=== PATIENT | male | born 1990 | race Caucasian/White ===

== ENCOUNTER 2022-08-03 15:36 | Emergency (ER) | payer SELFPAY ==
[2022-08-03] VITALS (7 sets, daily range): BP systolic 118–141; BP diastolic 59–109; PULSE 69–87; RESP 12–16; TEMP 36.8; O2SAT 92–100; BMI 26.4
--- NOTE | 2022-08-03 15:48 | XRR_ITS ---
PROCEDURE INFORMATION: Exam: XR Right Tibia and Fibula Exam date and time: 08/03/2022 3:57 PM Age: 32 years old Clinical indication: Injury or trauma; Fall; Blunt trauma; Lower leg; Right; Prior surgery TECHNIQUE: Imaging protocol: Radiologic exam of the right tibia and fibula. Views: 2 views. COMPARISON: No relevant prior studies available. FINDINGS: Bones/joints: Intact ORIF hardware in the distal fibula. No acute fracture. Soft tissues: Normal. XR/XR tibia fibula RT 2V [id number] IMPRESSION: No acute findings.
--- NOTE | 2022-08-03 15:48 | XR_ITS ---
WS: [id number] Exam: XR tibia fibula LT 2V [id number] Date/Time of Exam: 08/03/2022 3:51 PM Reason For Exam: trauma No fracture or dislocation. Unremarkable soft tissues. Articular relationships at the knee and ankle appear normal. There may be a tiny osteochondroma along the medial aspect of the fibular head. XR/XR tibia fibula LT 2V [id number] IMPRESSION: 1. No fracture or other significant finding.
--- NOTE | 2022-08-03 15:48 | CTR_ITS ---
PROCEDURE INFORMATION: Exam: CT Maxillofacial Without Contrast Exam date and time: 08/03/2022 5:00 PM Age: 32 years old Clinical indication: Injury or trauma; Fall; Work related; Blunt trauma (contusions or hematomas); Other: Whole face involved with multi contact points with wood trusses; Injury details: Trussed roof fell on patient TECHNIQUE: Imaging protocol: Computed tomography of the face without contrast. Radiation optimization: All CT scans at this facility use at least one of these dose optimization techniques: automated exposure control; mA and/or kV adjustment per patient size (includes targeted exams where dose is matched to clinical indication); or iterative reconstruction. REPORTING DATA: Count of CT and Cardiac NM exams in prior 12 months: This patient has received [address] and 0 known cardiac nuclear medicine studies in the 12 months prior to the current study. COMPARISON: CT head wo con* [id number] 08/03/2022 4:55 PM RADIATION DOSE METRICS: Total DLP (mGy-cm): 675.68 FINDINGS: Orbital cavities: Orbits are normal. Globes are unremarkable. Bones/joints: No acute fracture. Paranasal sinuses: Normal. No air-fluid levels. Soft tissues: Unremarkable. CT/CT facial bones wo con* [id number] IMPRESSION: No acute findings.
--- NOTE | 2022-08-03 15:48 | CTR_ITS ---
PROCEDURE INFORMATION: Exam: CT Head Without Contrast Exam date and time: 08/03/2022 4:55 PM Age: 32 years old Clinical indication: Injury or trauma; Fall; Work related; Blunt trauma (contusions or hematomas); Without loss of consciousness; Injury details: Trused roof collapsed on PT TECHNIQUE: Imaging protocol: Computed tomography of the head without contrast. Radiation optimization: All CT scans at this facility use at least one of these dose optimization techniques: automated exposure control; mA and/or kV adjustment per patient size (includes targeted exams where dose is matched to clinical indication); or iterative reconstruction. REPORTING DATA: Count of CT and Cardiac NM exams in prior 12 months: This patient has received [address] and 0 known cardiac nuclear medicine studies in the 12 months prior to the current study. COMPARISON: No relevant prior studies available. RADIATION DOSE METRICS: Total DLP (mGy-cm): 1146.58 FINDINGS: Brain: Normal. No hemorrhage. Unremarkable white matter. No mass effect. Cerebral ventricles: No ventriculomegaly. Paranasal sinuses: Visualized sinuses are unremarkable. No fluid levels. Mastoid air cells: Visualized mastoid air cells are well aerated. Bones/joints: Unremarkable. No acute fracture. Soft tissues: Right lateral scalp contusion. CT/CT head wo con* [id number] IMPRESSION: No acute intracranial abnormality.
--- NOTE | 2022-08-03 15:50 | ED_ITS ---
HPI - Trauma General: Chief Complaint: Trauma Stated Complaint: FALL/ HEADACHE/ ABRASIONS Time Seen by Provider: 08/03/22 15:42 Source: patient and EMS Mode of arrival: EMS Limitations: no limitations History of Present Illness: Patient was transported by EMS to the emergency department. 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 He did not suffer a loss of conscious but did suffer multiple abrasions to his face nose as well as his upper and lower extremities. MD complaint: fall Location - Extremities: Right: lower leg Associated symptoms: Reports epistaxis; Denies abdominal pain, chest pain, chills, fever(s), headache(s), nausea, syncope or vomiting Review of Systems Const: Denies: fever(s) or chills Eyes: Denies: change in vision ENMT: Reports: epistaxis; Denies: throat pain or odynophagia Card: Denies: chest pain, palpitations, syncope or pre-syncope Resp: Denies: dyspnea, productive cough or non-productive cough GI: Denies: abdominal pain, nausea or vomiting : Denies: flank pain, difficulty urinating, dysuria or urinary frequency Musc: Reports: extremity pain Skin/Breast: Reports: rash Neuro: Denies: headache(s), numbness in extremities or weakness in extremities Physical Exam Narrative: EXAM NARRATIVE: Presents somewhat anxious with C-spine immobilization in place. He is alert and answers questions appropriately. Const: COMMON NORMALS: alert GENERAL APPEARANCE: anxious HENMT: COMMON NORMALS: TM's normal bilaterally, moist oral mucous membranes and oropharynx normal FACE & SINUS: sinuses nontender and face symmetric FACE & SINUS IMAGES: 1. Abrasion and soft tissue swelling no step-off NOSE: Epistaxis present (No active bleeding. Septum appears midline. No obvious septal hematoma.) on the right TYMPANIC MEMBRANE: TM's normal bilaterally Eye: COMMON NORMALS: Equal, round and reactive pupils present, EOMs intact bilaterally and conjunctivae normal CONJUNCTIVA: Yes conjunctivae normal PUPIL: Yes Equal, round and reactive pupils present Neck/C-Spine: CERVICAL SPINE: Yes cervical ROM normal, No Cervical spine tenderness, No step off deformity, No Paracervical muscle tenderness, No Paracervical spasm, No Trapezius muscle tenderness and Yes collar present (Removed for examination) OTHER: Nexus criteria used to clinically clear save cervical spine after removal of collar Chest: COMMONS NORMALS: normal inspection of the chest and normal palpation of entire chest wall Resp: COMMON NORMALS: normal respiratory effort, No retractions, No use of accessory muscles and clear to auscultation bilaterally AUSCULTATION: clear to auscultation bilaterally Cardio: COMMON NORMALS: regular rate, regular rhythm, No murmurs present (Cardio) and Peripheral pulses 2+ throughout RATE: regular rate RHYTHM: regular rhythm PERIPHERAL PULSES: Peripheral pulses 2+ throughout GI: COMMON NORMALS: Normal to inspection, nondistended, normoactive bowel sounds present and Soft to palpation PALPATION: Yes Soft to palpation : COMMON NORMALS: Yes no CVA tenderness BLADDER/KIDNEY EXAM: Yes no CVA tenderness Back/Pelvis: COMMON NORMALS: no CVA tenderness, thoracic and lumbar spine normal to inspection, no thoracic nor lumbar tenderness, thoraco-lumbar ROM normal and straight leg raise negative bilaterally PELVIS: Yes no pain with anterior-posterior compression, Yes no pain with lateral compression and No tenderness over symphysis pubis SACROILIAC JOINTS: Yes SI joints normal Extremity: COMMON NORMALS: full ROM, capillary refill normal, no calf tenderness and no pedal edema NARRATIVE EXTREMITY EXAM: Extremity examination revealed normal range of motion in both upper extremities at the shoulder elbow wrist and distal joints. He has abrasion to his left forearm as well as several small abrasions to his right forearm. Able to pronate and supinate both forearms without any difficulty. Examination of the lower extremities revealed no evidence of deformity. He has tenderness over the abraded skin of his left anterior leg as well as the right. There is no deformity. He has normal range of motion at the hip knee ankle joints and distally bilaterally. Neurovascular intact. Neuro: FERNY COMA SCALE: document GCS findings Ferny coma scale eye ope hannah: Spontaneous Ferny coma scale verbal response: Orientated Ferny coma scale motor response: Obey commands [place] coma scale total score: 15 COMMON NORMALS: moves all extremities, no focal motor deficits and no sensory deficits noted SENSORIUM/ORIENTATION: Yes alert SPEECH: speech normal Psych: COMMON NORMALS: mental status grossly normal Skin: COMMON NORMALS: turgor normal NARRATIVE SKIN EXAM: Abrasions as previously noted to left face left and right forearms left and right anterior lower legs. No lacerations or other repairable wounds. GENERAL SKIN EXAM: turgor normal Course Reevaluation(s): Reevaluation #1: Patient was reexamined. No new or focal findings. No evidence of active nasal bleeding. No evidence of septal hematoma etc. Patient remains alert moves all extremities normally, no sensory or motor deficits. No other findings. Discussed current imaging studies expected course and return precautions. Time: 17:59 Vital Signs: Vital signs: Vital Signs Temperature 98.2 F 08/03/22 15:36 Pulse Rate 82 08/03/22 15:36 Respiratory Rate 16 08/03/22 17:10 Blood Pressure 141/109 08/03/22 15:36 Pulse Oximetry 100 08/03/22 17:10 Oxygen Delivery Me thod 08/03/22 15:36 MDM - Trauma Medical Decision Making This patient was transported from a construction site by EMS after sliding down collapsed ceiling trusses and then winding up falling the last approximately 5 feet to the ground. He sustained multiple abrasions and complained of left facial pain as well as lower leg pain on arrival. His clinical exam was reassuring and that there was no evidence of focal neurologic findings, obvious fractures etc. Work-up was initiated to ensure no obvious fracture, intracranial hemorrhage or skull fracture, facial fractures etc. Imaging studies were reassuring to include CT of head and face. Cervical spines and axial spine was cleared clinically without any step-offs or evidence of bony tenderness. Lower extremity films were also reassuring without evidence of fracture. Repeat evaluation revealed him to be stable without any new or focal findings. Patient has suffered multiple abrasions but no evidence of any more serious injury at this time. His tetanus status was updated and he is suitable to be discharged with outpatient follow-up and return precautions for emergency department visit. Lab Data I reviewed the patient's lab results. Radiology Impressions Face CT 08/03/22 15:48 IMPRESSION: No acute findings. Head CT 08/03/22 15:48 IMPRESSION: No acute intracranial abnormality. Tibia/Fibula X-Ray 08/03/22 15:48 IMPRESSION: No acute findings. Discharge Plan Discharge Patient Disposition: Home Clinical Impression: Contusion of face, Abrasion, multiple sites, Injury resulting from fall from height Condition: Stable Prescriptions: No Action No Known Home Medications Discharge Orders: Discharge ED (Routine); Ordered 08/03/22 Ordered By: Gato Guevara Discharge Diet: Advance as tolerated Discharge Activity: Increase activity as tolerated Patient Instructions: Abrasion (ED), Opioid Safety, Pain Management Activity Restrictions/Additional Instructions: As we discussed there was no evidence of serious injury as a result of your fall today. You have suffered multiple abrasions as well as soft tissue injury to your face and head. All of these injuries should heal normally over the next several days. Should you develop any new or concerning symptoms increasing pain etc. return to this emergency department for reevaluation. Coding Level of Care Code ED Supervisor Nut Processing for Josemanuel Russell
[2022-08-03] MEDS: tetanus-dipt-pertussis 0.5 mL SDV IM (16:40)
[2022-08-03] MEDS: fentaNYL 50 mcg/mL INJ 2mL IVP (17:10)
== END 2022-08-03 18:48 | disposition home or self-care (01) ==
PROVIDERS: Emergency Provider Emergency Medicine
DX: S00.83XA Contusion of other part of head, initial encounter (principal); S50.812A Abrasion of left forearm, initial encounter; S50.811A Abrasion of right forearm, initial encounter; S80.812A Abrasion, left lower leg, initial encounter; S80.811A Abrasion, right lower leg, initial encounter; W12.XXXA Fall on and from scaffolding, initial encounter; Z23 Encounter for immunization
CPT/HCPCS: 70450; 70486; 73590; 90471; 90715; 96374; 99285; J3010

== ENCOUNTER 2025-01-27 08:15 | Emergency (ER) | payer SELFPAY ==
--- OUTSIDE RECORDS SUMMARY | 2025-01-27 08:37 | XMS_ITS | Encounter Summary ---
Author Organization [facility] Address [address] [place] [address] Care Team Providers Care Chip Crusher Operator Name Role Phone Unavailable Primary Care Provider Unavailabl e Encounter Details Date Type Department Care Team (Latest Contact Info) Description 12/02/2003 Outpatient Historical [facility] All[facility] and Ast[facility]- [place] [address] [place] [address] Bridger Rodriguez MD NO ADDRESS ON FILE Toxic effect venom (Primary Dx) Social History Tobacco Use Types Packs/Day Years Used Date Smoking Tobacco: Never Assessed Sex and Gender Information Value Date Recorded Sex Assigned at Not on file 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
--- OUTSIDE RECORDS SUMMARY | 2025-01-27 08:37 | XMS_ITS | Encounter Summary ---
Author Organization [facility] Address [address] [place] [address] Care Team Providers Care Cemetery Vault Installer Name Role Phone Unavailable Primary Care Provider Unavailabl e Encounter Details Date Type Department Care Team (Latest Contact Info) Description 12/09/2003 Outpatient Historical [facility] All[facility] and Ast[facility]- [place] [address] [place] [address] Bridger Rodriguez MD NO ADDRESS ON FILE Toxic effect venom (Primary Dx) Social History Tobacco Use Types Packs/Day Years Used Date Smoking Tobacco: Never Assessed Sex and Gender Information Value Date Recorded Sex Assigned at Not on file 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
--- OUTSIDE RECORDS SUMMARY | 2025-01-27 08:37 | XMS_ITS | Clinical Summary ---
Author Organization [facility] Address [address] Nguyen: [place] [address] Care Team Providers Care Manufacturer Representative Name Role Phone Unavailable Primary Care Provider Unavailabl e Immunizations Immunization Administration Dates Next Due (M-M-R II/PRIORIX)(12 MO UP) MEASLES, MUMPS AND RUBELLA VIRUS VACCINE, 0.5 ML IM/SUBCUT 04/04/1994,04/18/1990 (TDVAX)(7 YRS UP) TETANUS AN D DIPHTHERIA TOXOIDS, ADSORBED (2 LF OF TETANUS TOXOID AND 2 LF OF DIPHTHERIA TOXOID), 0.5ML (PF), IM 12/05/2003 Dt Dtp Dtap Vaccine 12/13/1993, 0,1989,1989 HIB, Unspecified Formulation 05/18/1990 Hepatitis A Vaccine 04/19/2002,10/11/2001 Hepatitis B Vaccine 04/19/2002,12/14/2001,2001 IPV/OPV 12/13/1993,04/18/1990,1989 Influenza Seasonal Unspecifi ed Formulation IM 02/24/1997,03/27/1996 Social History Tobacco Use Types Packs/Day Years Used Date Smoking Tobacco: Never Assessed Sex and Gender Information Value Date Recorded Sex Assigned at Not on file 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
[2025-01-27 08:40] VITALS: BP 140/79; PULSE 64; RESP 18; TEMP 36.4; O2SAT 100
[2025-01-27 08:55] LABS: Hematocrit 40.6 % (37-53); Hemoglobin 13.20 g/dL (11.27-16.99); Mean Corpuscular HGB Conc 32.5 g/dL (30-55); Mean Corpuscular Hemoglobin 29.4 pg (27-33); Mean Corpuscular Volume 90.4 fl (82-101); Nucleated Red Blood Cells % 0 %; Platelet Count 360 10^3/cmm (157-399); Red Blood Count 4.49 10^6/uL (3.85-5.65); White Blood Count 7.82 10^3/uL (3.29-11.43)
[2025-01-27 09:10] LABS: Alanine Aminotransferase 21 U/L (0-41); Albumin Level 3.9 g/dL (3.5-5.2); Alkaline Phosphatase 82 U/L (40-130); Anion Gap 12.5 (5-19); Aspartate Amino Transferase 20 U/L (0-40); Blood Urea Nitrogen 15 mg/dL (6-20); Calcium 8.6 mg/dL (8.5-10.5); Carbon Dioxide 23 mmol/L (22-29); Chloride 106 mmol/L (98-107); Creatinine Clr Calc Pharmacy 181.2902; Globulin 2.4 g/dL (1.3-4.6); Glucose 98 mg/dL (65-115); Lipase 26 U/L (13-60); Osmolality Calculated 285 mOsm/kg (285-295); Potassium 4.5 mmol/L (3.5-5.1); Sodium 137 mmol/L (136-145); Total Protein 6.3 g/dL (6.6-8.7)
[2025-01-27 09:21] LABS: Glucose Urine UA Negative (Normal); Nitrate Urine Negative (Negative); Specific Gravity, Urine 1.015 (1.005-1.030)
--- NOTE | 2025-01-27 09:23 | ED_ITS ---
HPI - Abdominal Pain 2 General: Chief Complaint: Abdominal Pain Stated Complaint: lower abd pain Time Seen by Provider: 01/27/25 08:18 History of Present Illness: 35-year-old male presents emergency room stating he felt a pop in the right inguinal region when he was coughing it bothers him anytime he coughs or lifts anything heavy he has not noticed anything protruding he denies dysuria urgency or frequency no previous hernias or hernia surgeries. No bulge in the groin at this time. Associated Symptoms: Denies chills, dysuria and fever(s) Related Data Previous Rx's ?Medication ?Instructions ?Recorded amoxicillin 500 mg tablet 1,000 mg (2 x 500 mg) PO BID 10 03/24/24 days #40 tabs ibuprofen 600 mg tablet 600 mg PO Q8H PRN pain #30 t abs 03/24/24 Allergies Allergy/AdvReac Type Severity Reaction Status Date / Time bee venom protein (honey bee) Allergy ALGY-Anaphy Verified 03/24/24 10:52 laxis Review of Systems 2 Const: Denies: fever(s) or chills Card: Denies: chest pain Resp: Denies: dyspnea GI: Denies: abdominal pain : Denies: dysuria, urinary frequency or urinary urgency Musc: Denies: neck pain or back pain Skin/Breast: Denies: rash PFSH ED 2 PFSH: Social History Smoking and tobacco/nicotine status: unknown if used tobacco/nicotine Physical Exam 2 Const: COMMON NORMALS: no acute distress GENERAL APPEARANCE: cooperative and comfortable ORIENTATION/CONSCIOUSNESS: Yes awake, Yes oriented to person, Yes oriented to place and Yes oriented to time HENMT: COMMON NORMALS: normocephalic, atraumatic and hearing grossly normal bilaterally HEAD & SCALP: normocephalic and atraumatic Resp: COMMON NORMALS: normal respiratory effort, No retractions, No use of accessory muscles and clear to auscultation bilaterally AUSCULTATION: clear to auscultation bilaterally Cardio: COMMON NORMALS: regular rate, regular rhythm and No murmurs present (Cardio) RATE: regular rate RHYTHM: regular rhythm GI: COMMON NORMALS: Soft to palpation and No hepatosplenomegaly present A USCULTATION: Yes normoactive bowel sounds PALPATION: Yes Soft to palpation, No Tenderness to palpation present (GI), No Guarding due to palpation present (GI) and Yes No hepatosplenomegaly present : OTHER: Examination of the ilioinguinal region there is no evidence of herniation with palpation along the inguinal canal no defects or loose inguinal rings. No masses no lymphadenopathy Extremity: COMMON NORMALS: normal to inspection, capillary refill normal, no clubbing, cyanosis or edema, no calf tenderness and no pedal edema Neuro: SENSORIUM/ORIENTATION: Yes oriented to person, Yes oriented to place and Yes oriented to time Skin: COMMON NORMALS: no rashes or lesions noted GENERAL SKIN EXAM: no rashes or lesions noted Course 2 Vital Signs: Vital signs: Vital Signs Temperature 97.6 F 01/27/25 08:40 Pulse Rate 64 01/27/25 08:40 Respiratory Rate 18 01/27/25 08:40 Blood Pressure 140/79 01/27/25 08:40 Pulse Oximetry 100 01/27/25 08:40 Oxygen Delivery Me thod Room Air 01/27/25 08:40 MDM - Abdominal Pain Medical Decision Making Laboratory work normal reassurance given will discharge patient home suspect he strained muscle in the ilioinguinal ligament. Discharge patient home and follow-up with primary care. Medical Records I reviewed the patient's medical records. Lab Data I reviewed the patient's lab results. 01/27/25 08:48 01/27/25 08:48 Labs/Radiology: Laboratory Results WBC 7.82 10^3/uL (3.29-11.43) 01/27/25 08:48 RBC 4.49 10^6/uL (3.85-5.65) 01/27/25 08:48 Hgb 13.20 g/dL (11.27-16.99) 01/27/25 08:48 Hct 40.6 % (37-53) 01/27/25 08:48 MCV 90.4 fl (82-101) 01/27/25 08:48 MCH 29.4 pg (27-33) 01/27/25 08:48 MCHC 32.5 g/dL (30-55) 01/27/25 08:48 RDW 12.1 % (12.1-15.1) 01/27/25 08:48 Plt Count 360 10^3/cmm (157-399) 01/27/25 08:48 MPV 9.7 fL (7.4-10.4) 01/27/25 08:48 Neut % (Auto) 58.8 % 01/27/25 08:48 Lymph % (Auto) 26.2 % 01/27/25 08:48 [place] % (Auto) 10.2 % 01/27/25 08:48 Eos % (Auto) 3.7 % 01/27/25 08:48 Baso % (Auto) 0.8 % 01/27/25 08:48 Neut # (Auto) 4.60 10^3/uL (1.8-7.7) 01/27/25 08:48 Lymph # (Auto) 2.1 10^3/uL (0.8-4.8) 01/27/25 08:48 [place] # (Auto) 0.8 10^3/uL (0.2-0.9) 01/27/25 08:48 Eos # (Auto) 0.3 10^3/uL (0.0-0.8) 01/27/25 08:48 Baso # (Auto) 0.1 10^3/uL (0.0-0.1) 01/27/25 08:48 Nucleated RBC % (auto) 0 % 01/27/25 08:48 Nucleated RBCs # 0.0 /100WBC 01/27/25 08:48 Sodium 137 mmol/L (136-145) 01/27/25 08:48 Potassium 4.5 mmol/L (3.5-5.1) 01/27/25 08:48 Chloride 106 mmol/L (98-107) 01/27/25 08:48 Carbon Dioxide 23 mmol/L (22-29) 01/27/25 08:48 Anion Gap 12.5 (5-19) 01/27/25 08:48 BUN 15 mg/dL (6-20) 01/27/25 08:48 Creatinine 0.7 mg/dL (0.7-1.2) 01/27/25 08:48 GFR Calculation 127.6 mL/min (90-130) 01/27/25 08:48 Glucose 98 mg/dL (65-115) 01/27/25 08:48 Calculated Osmolality 285 mOsm/kg (285-295) 01/27/25 08:48 Calcium 8.6 mg/dL (8.5-10.5) 01/27/25 08:48 Total Bilirubin 0.2 mg/dL (0.15-1.2) 01/27/25 08:48 AST 20 U/L (0-40) 01/27/25 08:48 ALT 21 U/L (0-41) 01/27/25 08:48 Alkaline Phosphatase 82 U/L (40-130) 01/27/25 08:48 Total Protein 6.3 g/dL (6.6-8.7) L 01/27/25 08:48 Albumin 3.9 g/dL (3.5-5.2) 01/27/25 08:48 Globulin 2.4 g/dL (1.3-4.6) 01/27/25 08:48 Lipase 26 U/L (13-60) 01/27/25 08:48 Urine Color Yellow (Yellow) 01/27/25 09:12 Urine Appearance Clear (CLEAR) 01/27/25 09:12 Urine pH 6.0 (5-7) 01/27/25 09:12 Ur Specific [place] 1.015 (1.005-1.030) 01/27/25 09:12 Urine Protein Negative (Negative) 01/27/25 09:12 Urine Glucose (UA) Negative (Normal) 01/27/25 09:12 Urine Ketones Negative (Negative) 01/27/25 09:12 Urine Blood Negative (Negative) 01/27/25 09:12 Urine Nitrate Negative (Negative) 01/27/25 09:12 Urine Bilirubin Negative (Negative) 01/27/25 09:12 Urine Urobilinogen 0.2 mg/dL (Negative) 01/27/25 09:12 Ur Leukocyte Esterase Negative (Negative) 01/27/25 09:12 Urine RBC 0-2 /hpf (0-2) 01/27/25 09:12 Urine WBC 0-5 /hpf (0-5) 01/27/25 09:12 Ur Squamous Epith Cells 0-5 /hpf (0-5) 01/27/25 09:12 Amorphous Sediment Not Reportable 01/27/25 09:12 Urine Bacteria None seen /hpf (NONE) 01/27/25 09:12 Hyaline Casts 0-4 /lpf H 01/27/25 09:12 All radiology interpretation(s) finalized by discharge Discharge Plan Discharge Patient Disposition: Home Clinical Impression: Groin strain Condition: Stable Prescriptions: No Action amoxicillin 500 mg tablet 1,000 mg PO BID 10 Days Qty: 40 0RF ibuprofen 600 mg tablet 600 mg PO Q8H PRN (Reason: pain) Qty: 30 0RF Discharge Orders: Discharge ED (Routine); Ordered 01/27/25 Ordered By: Flex Chan Discharge Diet: Usual diet Discharge Activity: Resume usual activity Patient Instructions: Opioid Safety, Pain Management, Patient Portal & Alexei Instructions Activity Restrictions/Additional Instructions: [facility]. It is very important that you follow up as instructed or that you return to the Emergency Department should you have concerns or if your condition changes or worsens in any way. Emergency department visits are focused on emergent conditions, in some cases you may require further evaluation on an outpatient basis. You were seen in the emergency room with complaints of discomfort in the right inguinal region. On exam there is no evidence of bulge there is no evidence of hernia. Your laboratory tests are unremarkable. You can use ibuprofen or Aleve [id number] avoid heavy lifting if symptoms persist follow-up with primary care (Please note that included in your discharge packet is information concerning opioid safety and pain management. This information is given to all patients were discharged from the ER regardless of their discharge diagnosis or the medicines they usually take or are prescribed.) Print Language: Slovak Coding Level of Care Code ED Physics Faculty Member for Josemanuel Russell
[2025-01-27 09:25] LABS: Add Urine Microscopic? YES
== END 2025-01-27 10:11 | disposition home or self-care (01) ==
PROVIDERS: Emergency Provider Family Medicine
DX: S39.011A Strain of muscle, fascia and tendon of abdomen, initial encounter (principal); X58.XXXA Exposure to other specified factors, initial encounter
CPT/HCPCS: 36415; 80053; 81001; 83690; 85025; 99283